=== PATIENT | male | born 1965 | race Caucasian/White ===

== ENCOUNTER 2023-08-25 19:39 | Outpatient (CLI) | payer OTHER, SELFPAY ==
[2023-08-25 10:11] LABS: ALT 39 U/L (16-63); AST 22 U/L (15-37); Albumin 4.1 g/dL (3.4-5.0); Alkaline Phosphatase 60 U/L (46-116); Anion Gap 8.4 mmol/L (3-11); BUN 14 mg/dL (7-18); Bilirubin, Total 0.7 mg/dL (0.2-1.0); CO2 26.6 mmol/L (21.0-32.0); Calcium 9.2 mg/dL (8.5-10.1); Calculated LDL 142 mg/dL (<100); Chloride 101 mmol/L (98-107); Cholesterol 227 mg/dL (<200); Estimated GFR 88.33 (mL/min/1.73m2); Glucose 99 mg/dL (74-106); HDL Cholesterol 66 mg/dL (40-60); Potassium 4.2 mmol/L (3.5-5.1); Sodium 136 mmol/L (136-145); Total Protein 7.8 g/dL (6.4-8.2); Triglyceride 96 mg/dL (<150)
[2023-08-25 19:54] LABS: PSA, Screening 1.1 ng/mL (<=3.5)
== END 2023-08-25 19:40 | disposition home or self-care (01) ==
LOC: LBO 19:40
PROVIDERS: PCP Nurse Practitioner Family; Visit Provider Nurse Practitioner Family
DX: I10 Essential (primary) hypertension (principal); E78.5 Hyperlipidemia, unspecified; Z00.00 Encounter for general adult medical examination without abnormal findings
CPT/HCPCS: 36415; 80053; 80061; 84153

== ENCOUNTER 2024-09-11 14:09 | Outpatient (CLI) | payer OTHER, SELFPAY ==
[2024-09-11 09:33] LABS: Abs Immature Grans 0.01 10^3/uL (0.0-0.06); Absolute Basophil Count 0.02 10^3/uL (0.0-0.2); Absolute Eosinophil Count 0.28 10^3/uL (0.0-0.7); Absolute Lymphocyte Count 1.73 10^3/uL (1.2-3.4); Absolute Monocyte Count 0.71 10^3/uL (0.1-0.8); Absolute Neutrophil Count 3.04 10^3/uL (1.2-6.7); Basophils % 0.3 %; Eosinophils % 4.8 %; HCT 45.2 % (40.0-50.0); HGB 15.6 g/dL (13.5-17.5); Immature Grans % 0.2 %; Lymphocytes % 29.9 %; MCH 31.5 pg (27.0-33.0); MCHC 34.5 % (32.0-36.0); MCV 91 fL (80-95); MPV 8.3 fL (8.0-11.0); Monocytes % 12.3 %; Neutrophils % 52.5 %; Platelet Count 232 10^3/uL (130-400); RBC 4.95 10^6/uL (4.36-5.78); RDW 12.2 % (11.8-14.1); RDW-SD 40.6 fL; WBC 5.79 10^3/uL (4.4-10.8)
[2024-09-11 09:34] LABS: Bilirubin Negative (Negative); Blood Negative (Negative); Clarity Clear (Clear); Glucose Negative (Negative); Ketones Negative (Negative); Leukocyte Esterase Negative (Negative); Nitrite Negative (Negative); Specific Gravity 1.015 (1.005-1.025); Urobilinogen 0.2 mg/dL (Up to 0.2)
[2024-09-11 09:58] LABS: ALT 37 U/L (16-63); AST 20 U/L (15-37); Albumin 4.2 g/dL (3.4-5.0); Alkaline Phosphatase 75 U/L (46-116); Anion Gap 6.5 mmol/L (3-11); BUN 16 mg/dL (7-18); CO2 30.5 mmol/L (21.0-32.0); CREATININE 1.1 mg/dL (0.70-1.30); Calcium 9.4 mg/dL (8.5-10.1); Calculated LDL 145 mg/dL (<100); Chloride 101 mmol/L (98-107); Cholesterol 239 mg/dL (<200); Glucose 112 mg/dL (74-106); HDL Cholesterol 76 mg/dL (40-60); Potassium 4.7 mmol/L (3.5-5.1); Sodium 138 mmol/L (136-145); Total Protein 7.8 g/dL (6.4-8.2); Triglyceride 92 mg/dL (<150)
[2024-09-11 19:04] LABS: PSA, Screening 1.2 ng/mL (<=3.5)
== END 2024-09-11 14:10 | disposition home or self-care (01) ==
LOC: LBO 14:10
PROVIDERS: PCP Physician Assistant; Visit Provider Family Medicine
DX: Z00.00 Encounter for general adult medical examination without abnormal findings (principal); Z12.5 Encounter for screening for malignant neoplasm of prostate
CPT/HCPCS: 36415; 80053; 80061; 84153; 81003; 85025